=== PATIENT | female | born 1990 | race Two or more races ===

== ENCOUNTER 2018-08-03 22:34 | Inpatient (IN) | payer OTHER ==
[2018-08-04] MEDS ORDERED: CALCIUM CARBONATE 500 MG CHEW U/D PO (02:00)
[2018-08-04 02:29] LABS: HEMATOCRIT 34.1 % (36.0-47.0); HEMOGLOBIN 11.9 g/dl (12.0-15.5); MEAN CORPUSCULAR HEMOGLOBIN 31.7 pg (27.0-33.0); MEAN CORPUSCULAR HGB CONC 34.9 g/dl (32.0-36.5); MEAN CORPUSCULAR VOLUME 90.9 fl (80.0-96.0); PLATELET COUNT, AUTOMATED 184 10^3/uL (150-450); RED BLOOD COUNT 3.75 10^6/uL (4.00-5.40); WHITE BLOOD COUNT 10.7 10^3/uL (4.0-10.0)
[2018-08-04] MEDS: LR 1,000 ML IV (02:40)
[2018-08-04] MEDS: LACTATED RINGER'S 1000 ML IV (02:40)
[2018-08-04] MEDS: BUTORPHANOL 2 MG/ML INJ (J0595) IV (03:00)
[2018-08-04] MEDS ORDERED: FENTANYL 2MCG/ML ROPIVACAINE 0.2% IN 0.9% NACL 200ML IVBAG As Ordered (03:35)
[2018-08-04] MEDS: ONDANSETRON 4MG/2ML VIAL (J2405) IV (03:46)
[2018-08-04] MEDS ORDERED: LACTATED RINGER'S 1000 ML IV (04:45)
[2018-08-04] MEDS ORDERED: EPIDURAL/PCA KEYS XX (04:45)
[2018-08-04] MEDS ORDERED: NALOXONE INJ 0.4 MG/1 ML VIAL (J2310) IV (04:45)
[2018-08-04] MEDS ORDERED: ONDANSETRON 4MG/2ML VIAL (J2405) IV (04:45)
[2018-08-04] MEDS ORDERED: ePHEDrine SULFATE 25 MG/5 ML(5MG/ML) SYRINGE IV (04:45)
[2018-08-04] MEDS ORDERED: diphenhydrAMINE INJ 50MG/ML VIAL (J1200) IV (04:45)
[2018-08-04] MEDS ORDERED: EPIDURAL COMMENT XX (04:45)
[2018-08-04] MEDS ORDERED: REFRIGERATOR IV KEYS XX (04:45)
[2018-08-04] MEDS ORDERED: FENTANYL/ROPIVACAINE/NACL BAG 200 ML EPIDURAL (04:45)
[2018-08-04] MEDS: CALCIUM CARBONATE 500 MG CHEW U/D PO (07:33)
[2018-08-04] MEDS: OXYTOCIN DRIP 30 UNITS in APPROPRIATE DILUENT 1 EA IV ×2 (08:20→12:00)
[2018-08-04] MEDS: DIBUCAINE 1% OINTMENT 30GM TOP (15:08)
[2018-08-04] MEDS: IBUPROFEN 800 MG TAB PO ×2 (15:14→23:07)
[2018-08-04] MEDS: ACETAMINOPHEN TAB 650MG DOSE (2X325MG) PO (18:20)
[2018-08-04] MEDS: RHOGAM 300 MCG (1500 IU) INJ (J2790) IM (18:21)
[2018-08-04] MEDS: MEASLES,MUMPS,RUBELLA VACCINE INJ (MMR-II) (90707) SC (18:22)
[2018-08-04] MEDS: DOCUSATE SODIUM 100 MG CAP PO (20:04)
[2018-08-05] MEDS: ACETAMINOPHEN TAB 650MG DOSE (2X325MG) PO ×3 (05:07→22:42)
[2018-08-05] MEDS: IBUPROFEN 800 MG TAB PO ×2 (08:12→17:35)
[2018-08-05] MEDS: DOCUSATE SODIUM 100 MG CAP PO ×2 (08:43→22:42)
[2018-08-05] MEDS: PRENATAL VITAMINS CHEWABLE TABLET PO (08:43)
[2018-08-05] MEDS: ADACEL/BOOSTRIX VACCINE (DIPHTH/PERTUSS/ACELL/TETANUS)0.5ML SYR (90715) IM (08:44)
[2018-08-06] MEDS: IBUPROFEN 800 MG TAB PO ×2 (01:20→10:46)
[2018-08-06] MEDS: ACETAMINOPHEN TAB 650MG DOSE (2X325MG) PO (06:20)
[2018-08-06] MEDS: PRENATAL VITAMINS CHEWABLE TABLET PO (10:00)
[2018-08-06] MEDS: DOCUSATE SODIUM 100 MG CAP PO (10:46)
== END 2018-08-06 14:10 | disposition home or self-care (01) | DRG 775 ==
LOC: M LDO 22:34 → M LDI 08-04 01:50 → M OBS 08-04 14:38
PROVIDERS: Obstetrics & Gynecology
PROC: 10E0XZZ Delivery of Products of Conception, External Approach (ICD-10-PCS; principal; 2018-08-04)
PROC: 0HQ9XZZ Repair Perineum Skin, External Approach (ICD-10-PCS; 2018-08-04)
PROC: 0UQMXZZ Repair Vulva, External Approach (ICD-10-PCS; 2018-08-04)
DX: O48.0 Post-term pregnancy (principal); O99.62 Diseases of the digestive system complicating childbirth; Z3A.40 40 weeks gestation of pregnancy; K21.9 Gastro-esophageal reflux disease without esophagitis; Z37.0 Single live birth; O70.0 First degree perineal laceration during delivery; O71.82 Other specified trauma to perineum and vulva